=== PATIENT | male | born 1950 | race Caucasian/White ===

== ENCOUNTER → 2016-11-28 | Outpatient (REF) | payer MEDICARE ==
[2016-11-28 12:43] LABS: ALBUMIN 4.1 GM/DL (3.2-5.2); ALBUMIN/GLOBULIN RATIO 1.05 (1.00-1.93); ALKALINE PHOSPHATASE 57 U/L (45-117); ALT/SGPT 43 U/L (12-78); ANION GAP 8 MEQ/L (8-16); AST/SGOT 29 U/L (15-37); BILIRUBIN,TOTAL 0.6 MG/DL (0.2-1.0); BLOOD UREA NITROGEN 15 MG/DL (7-18); CALCIUM LEVEL 9.3 MG/DL (8.8-10.2); CARBON DIOXIDE LEVEL 26 MEQ/L (21-32); CHLORIDE LEVEL 105 MEQ/L (98-107); CHOLESTEROL LEVEL 259 MG/DL (<200); CREATININE FOR GFR 0.97 MG/DL (0.70-1.30); GLOMERULAR FILTRATION RATE > 60.0 (>49); GLUCOSE, FASTING 105 MG/DL (80-110); POTASSIUM SERUM 4.7 MEQ/L (3.5-5.1); SODIUM LEVEL 139 MEQ/L (136-145); TRIGLYCERIDES LEVEL 241 MG/DL (<150)
== END ==
LOC: M SFHCCLAY 09:06
PROVIDERS: ATTEND Family Medicine
DX: E78.2 Mixed hyperlipidemia (principal); Z12.5 Encounter for screening for malignant neoplasm of prostate; I10 Essential (primary) hypertension
CPT/HCPCS: 80053; 80061; 84443; G0103

== ENCOUNTER → 2017-05-15 | Outpatient (CLI) | payer MEDICARE ==
--- NOTE | 2017-05-15 10:41 | REP ---
Gastric emptying nuclear scintigraphy: History: Dyspepsia. Technique: 1.04 mCi of technetium-99m sulfur colloid was ingested in two scrambled eggs and 6 ounces of water and sequential anterior and posterior images are acquired for an 89-minute imaging observation period. Regions of interest are drawn around the stomach to plot gastric emptying. Scintigraphic findings: Expected T1/2 is 90 minutes. 72 % emptying is observed in this patient during the 89-minute imaging observation period, for a calculated T1/2 in this patient of 63 minutes. Impression: Normal gastric emptying. Signed by Crow Ross MD 05/15/2017 10:33 A
== END ==
LOC: M RAD 07:59
PROVIDERS: ATTEND Internal Medicine Adolescent Medicine
DX: R10.13 Epigastric pain (principal)
CPT/HCPCS: 78264; A9541

== ENCOUNTER → 2017-06-26 | Outpatient (REF) | payer MEDICARE ==
[2017-06-26 12:20] LABS: ALBUMIN 3.9 GM/DL (3.2-5.2); ALBUMIN/GLOBULIN RATIO 1.03 (1.00-1.93); ALKALINE PHOSPHATASE 55 U/L (45-117); ALT/SGPT 33 U/L (12-78); ANION GAP 7 MEQ/L (8-16); AST/SGOT 18 U/L (15-37); BILIRUBIN,TOTAL 0.6 MG/DL (0.2-1.0); BLOOD UREA NITROGEN 18 MG/DL (7-18); CALCIUM LEVEL 9.3 MG/DL (8.8-10.2); CARBON DIOXIDE LEVEL 28 MEQ/L (21-32); CHLORIDE LEVEL 105 MEQ/L (98-107); CHOLESTEROL LEVEL 213 MG/DL (<200); CREATININE FOR GFR 0.98 MG/DL (0.70-1.30); GLOMERULAR FILTRATION RATE > 60.0 (>49); GLUCOSE, FASTING 102 MG/DL (80-110); POTASSIUM SERUM 4.9 MEQ/L (3.5-5.1); SODIUM LEVEL 140 MEQ/L (136-145); TOTAL PROTEIN 7.7 GM/DL (6.4-8.2); TRIGLYCERIDES LEVEL 183 MG/DL (<150)
== END ==
LOC: M SFHCCLAY 07:22
PROVIDERS: ATTEND Family Medicine
DX: E78.2 Mixed hyperlipidemia (principal); I10 Essential (primary) hypertension

== ENCOUNTER → 2018-09-11 | Outpatient (REF) | payer MEDICARE | LOC: M SFHCLERA 09:54 | PROVIDERS: ATTEND Dermatology | DX: C44.529 Squamous cell carcinoma of skin of other part of trunk (principal); L82.1 Other seborrheic keratosis; C44.629 Squamous cell carcinoma of skin of left upper limb, including shoulder ==

== ENCOUNTER → 2019-01-14 | Outpatient (CLI) | payer MEDICARE ==
[2019-01-14 11:32] LABS: BLOOD UREA NITROGEN 14 MG/DL (7-18); CALCIUM LEVEL 8.8 MG/DL (8.8-10.2); CARBON DIOXIDE LEVEL 29 MEQ/L (21-32); CHLORIDE LEVEL 106 MEQ/L (98-107); CREATININE FOR GFR 1.06 MG/DL (0.70-1.30); GLOMERULAR FILTRATION RATE > 60.0 (>49); GLUCOSE, FASTING 107 MG/DL (70-100); POTASSIUM SERUM 4.8 MEQ/L (3.5-5.1); SODIUM LEVEL 139 MEQ/L (136-145)
== END ==
LOC: M LAB 10:30
PROVIDERS: ATTEND Internal Medicine Adolescent Medicine
DX: K63.89 Other specified diseases of intestine (principal); K58.9 Irritable bowel syndrome, unspecified

== ENCOUNTER → 2019-01-20 | Outpatient (CLI) | payer MEDICARE ==
[~2019-01-20] MED LIST: GASTROGRAFIN SOLUTION 30ML (Q9963) As Ordered ONE; ISOVUE-370 76% 100ML VIAL (Q9967) As Ordered ONE
--- NOTE | 2019-01-20 17:53 | REP ---
CT abdomen and pelvis with IV and oral contrast: History: Family history of colon carcinoma. Burping. No comparison imaging. CT contrast dose: 100 ml of intravenous Isovue 370. 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 The lung bases are clear. There is moderate diffuse fatty infiltration of the liver. The gallbladder is surgically absent. No pancreatic abnormality is seen. The spleen is unremarkable. The liver is enlarged measuring 19.7 cm in craniocaudal span in the midclavicular line. There are intrarenal calculi in the right kidney. The largest of these is in the lower pole measuring 5 mm. No hydronephrosis is seen. There is a small distal abdominal aortic aneurysm measuring 2.9 cm in greatest right to left dimension. Heavy vascular calcification is noted. Small and large intestinal bowel loops are normal in the upper abdomen. The appendix is not confidently identified but there is no CT evidence to suggest appendicitis. Urinary bladder is unremarkable. There are prostate calcifications. Seminal vesicles are normal in appearance. There is mild left colonic diverticulosis. No CT evidence of diverticulitis is seen. Impression: Hepatomegaly with fatty infiltration of the liver. Intrarenal nephrolithiasis right kidney without hydronephrosis. Left colonic diverticulosis. Electronically Signed by Crow Ross MD 01/20/2019 07:38 P
== END ==
LOC: M RAD 11:58
PROVIDERS: ATTEND Internal Medicine Adolescent Medicine
DX: R14.2 Eructation (principal); Z80.0 Family history of malignant neoplasm of digestive organs; R16.0 Hepatomegaly, not elsewhere classified; K76.0 Fatty (change of) liver, not elsewhere classified; N20.0 Calculus of kidney; K57.30 Diverticulosis of large intestine without perforation or abscess without bleeding
CPT/HCPCS: 74177; Q9963; Q9967

== ENCOUNTER → 2021-01-19 | Outpatient (CLI) | payer MEDICARE ==
--- NOTE | 2021-01-19 15:32 | REP ---
INDICATION: PAIN LEFT KNEE. COMPARISON: Five views of the right knee TECHNIQUE: Standing bilateral PA view of the knee with standing lateral left knee and sunrise view of the left knee FINDINGS: There is bilateral lateral compartmental narrowing and bilateral bicompartmental marginal osteophytosis which is mild. 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 Marginal osteophytosis is seen involving the articular surface of the left knee patella. IMPRESSION: Chronic changes as described above. <Electronically signed by Diogo Briones > 01/19/21 1526
== END ==
LOC: M SOG 13:31
PROVIDERS: ATTEND Orthopaedic Surgery Adult Reconstructive Orthopaedic Surgery
DX: M25.562 Pain in left knee (principal)

== ENCOUNTER → 2022-08-15 | Outpatient (REF) | payer MEDICARE ==
[2022-08-15 11:58] LABS: BASO # 0.1 10^3/uL (0.0-0.2); EOS # 0.4 10^3/uL (0.0-0.5); EOS % 6.5 % (0.0-3.0); HEMATOCRIT 44.6 % (42.0-52.0); HEMOGLOBIN 14.7 g/dl (13.5-17.5); LYMPH # 2.1 10^3/uL (1.5-5.0); LYMPH % 34.8 % (24.0-44.0); MEAN CORPUSCULAR HEMOGLOBIN 31.6 pg (27.0-33.0); MEAN CORPUSCULAR VOLUME 95.9 fl (80.0-96.0); MONO # 0.5 10^3/uL (0.0-0.8); NEUTROPHILS # 2.9 10^3/uL (1.5-8.5); NEUTROPHILS % 48.4 % (36.0-66.0); PLATELET COUNT, AUTOMATED 169 10^3/uL (150-450); RED BLOOD COUNT 4.65 10^6/uL (4.30-6.10)
[2022-08-15 12:20] LABS: ALBUMIN 3.8 G/DL (3.2-5.2); ALKALINE PHOSPHATASE 64 U/L (46-116); ALT/SGPT 29 U/L (7.0-40); AST/SGOT 20 U/L (<34); BILIRUBIN,TOTAL 0.6 MG/DL (0.3-1.2); BLOOD UREA NITROGEN 16 MG/DL (9-23); CALCIUM LEVEL 9.2 MG/DL (8.3-10.6); CARBON DIOXIDE LEVEL 27 MMOL/L (20-31); CHLORIDE LEVEL 103 MMOL/L (98-107); CHOLESTEROL LEVEL 215 MG/DL (<200); CREATININE FOR GFR 0.87 MG/DL (0.70-1.30); GLOMERULAR FILTRATION RATE > 60.0 (>42); GLUCOSE, FASTING 117 MG/DL (74-106); NON-HDL-C 165 MG/DL; POTASSIUM SERUM 4.3 MMOL/L (3.5-5.1); SODIUM LEVEL 138 MMOL/L (136-145); TOTAL PROTEIN 7.5 G/DL (5.7-8.2); TRIGLYCERIDES LEVEL 165 MG/DL (<150)
[2022-08-15 12:22] LABS: FREE T4 1.17 NG/DL (0.89-1.76); THYROID STIMULATING HORMONE 2.565 uIU/ML (0.55-4.78)
[2022-08-15 12:25] LABS: HEMOGLOBIN A1c 5.1 % (4.0-6.0)
== END ==
LOC: M SFHCCLAY 07:36
PROVIDERS: ATTEND Nurse Practitioner Family
DX: K21.9 Gastro-esophageal reflux disease without esophagitis (principal); I10 Essential (primary) hypertension; E66.9 Obesity, unspecified; E78.2 Mixed hyperlipidemia; Z12.5 Encounter for screening for malignant neoplasm of prostate; Z13.1 Encounter for screening for diabetes mellitus; Z79.899 Other long term (current) drug therapy
CPT/HCPCS: 80053; 80061; 83036; 84439; 84443; 85025; G0103

== ENCOUNTER → 2024-10-21 | Outpatient (REF) | payer MEDICARE ==
[2024-10-21 17:42] LABS: ALKALINE PHOSPHATASE 57 U/L (40-129); ALT/SGPT 33 U/L (7.0-40); AST/SGOT 23 U/L (<34); BLOOD UREA NITROGEN 15 MG/DL (9-23); CALCIUM LEVEL 9.7 MG/DL (8.3-10.6); CARBON DIOXIDE LEVEL 25 MMOL/L (20-31); CHLORIDE LEVEL 102 MMOL/L (98-107); CHOLESTEROL LEVEL 218 MG/DL (<200); CHOLESTEROL RISK RATIO 3.82 (<5); CREATININE FOR GFR 0.85 MG/DL (0.70-1.30); GLOMERULAR FILTRATION RATE > 60.0 (>42); GLUCOSE, FASTING 102 MG/DL (74-106); LDL CHOLESTEROL 131.2 MG/DL (<100); POTASSIUM SERUM 3.9 MMOL/L (3.5-5.1); PSA SCREENING 1.05 NG/ML (< 4.00); SODIUM LEVEL 142 MMOL/L (136-145); THYROID STIMULATING HORMONE 1.569 uIU/ML (0.55-4.78); TOTAL PROTEIN 7.7 G/DL (5.7-8.2); TRIGLYCERIDES LEVEL 149 MG/DL (<150)
[2024-10-21 17:43] LABS: FREE T4 1.43 NG/DL (0.89-1.76)
[2024-10-21 17:47] LABS: BASO # 0.1 10^3/uL (0.0-0.2); BASO % 1.1 % (0.0-1.0); EOS # 0.4 10^3/uL (0.0-0.5); EOS % 6.4 % (0.0-3.0); HEMOGLOBIN 14.8 g/dl (13.5-17.5); LYMPH # 1.9 10^3/uL (1.5-5.0); LYMPH % 32.9 % (24.0-44.0); MEAN CORPUSCULAR HEMOGLOBIN 32.2 pg (27.0-33.0); MEAN CORPUSCULAR HGB CONC 33.6 g/dl (32.0-36.5); MEAN CORPUSCULAR VOLUME 95.9 fl (80.0-96.0); MONO # 0.5 10^3/uL (0.0-0.8); MONO % 8.8 % (2.0-8.0); NEUTROPHILS # 2.9 10^3/uL (1.5-8.5); NEUTROPHILS % 50.3 % (36.0-66.0); PLATELET COUNT, AUTOMATED 171 10^3/uL (150-450); RED BLOOD COUNT 4.59 10^6/uL (4.30-6.10); WHITE BLOOD COUNT 5.7 10^3/uL (4.0-10.0)
[2024-10-21 18:20] LABS: HEMOGLOBIN A1c 5.2 % (4.0-6.0)
== END ==
LOC: M SFHCCLAY 10:09
PROVIDERS: ATTEND Nurse Practitioner Family
DX: Z00.00 Encounter for general adult medical examination without abnormal findings (principal); I10 Essential (primary) hypertension; E66.9 Obesity, unspecified; K21.9 Gastro-esophageal reflux disease without esophagitis; E78.2 Mixed hyperlipidemia; Z12.5 Encounter for screening for malignant neoplasm of prostate; Z13.1 Encounter for screening for diabetes mellitus
CPT/HCPCS: 80053; 80061; 83036; 84439; 84443; 85025; G0103

== ENCOUNTER → 2025-05-27 | Outpatient (CLI) | payer MEDICARE | LOC: M CLY 07:39 | PROVIDERS: ATTEND Physician Assistant | DX: M25.562 Pain in left knee (principal) ==